=== PATIENT | male | born 1960 | race Hispanic/Latino ===

== ENCOUNTER → 2024-12-14 | Outpatient (CLI) | payer OTHER ==
--- NOTE | 2024-12-15 09:50 | HMCIMG ---
EXAMINATION: NONCONTRAST MRI OF THE LEFT SHOULDER. CLINICAL HISTORY: Pain COMPARISON: None provided. TECHNIQUE: Multiplanar, multisequence MR images of the left shoulder are submitted. FINDINGS: There is type I acromion with no subacromial spur. The coracoclavicular ligament is intact. 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 No periosseous synovial thickening. There is mild subacromial-subdeltoid bursitis. The peritendinous soft tissues are normal. There is mild to moderate supraspinatus and infraspinatus tendinosis with partial thickness posterior supraspinatus/anterior infraspinatus bursal sided fraying. Small intraosseous cystic changes and mild marrow edema at the enthesis. Teres minor is intact. Mild superior subscapularis tendinosis. No muscle volume loss or fatty infiltration. The long head of the biceps tendon is normal in course and reveals mild intra-articular tendinosis. Bicipital anchor is intact. There is normal bone marrow signal within the shoulder girdle without fracture, avascular necrosis, or osteomyelitis. The labrum is normal in bulk in signal. There is mild anterior inferior and posterior inferior glenoid osseous remodeling. The glenohumeral joint is intact. Mild rotator interval scarring with subtle edema. Mild anterior inferior capsular thickening with subtle edema. The soft tissues are normal. IMPRESSION: 1. Mild to moderate supraspinatus and infraspinatus tendinosis with partial thickness bursal-sided fraying. 2. Mild rotator interval scarring with subtle edema and mild anterior inferior capsular thickening with subtle edema. Findings are concerning for concomitant adhesive capsulitis. /[place]
== END | disposition home or self-care (01) ==
LOC: RAH 13:37
PROVIDERS: ATTEND Orthopaedic Surgery
DX: S46.092D Other injury of muscle(s) and tendon(s) of the rotator cuff of left shoulder, subsequent encounter (principal); M67.814 Other specified disorders of tendon, left shoulder; M19.012 Primary osteoarthritis, left shoulder; X58.XXXD Exposure to other specified factors, subsequent encounter
CPT/HCPCS: 73221